=== PATIENT | female | born 1980 | race Caucasian/White ===

== ENCOUNTER 2020-06-16 15:56 | Emergency (ER) | payer SELFPAY ==
[~2020-06-16] VITALS: Ht 165.1 cm; Wt 52.2 kg
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
[2020-06-16] MEDS ORDERED: TRAMADOL HCL 50 MG TABLET ONE (17:04)
[2020-06-16] MEDS: TRAMADOL HCL 50 MG TABLET PO ONE (17:13)
--- NOTE | 2020-06-16 17:41 | NUR ---
Patient ambulatory with steady gait. No distress noted. Patient discharged to home in stable condition. Written and verbal after care instructions given. Patient verbalizes understanding of instruction.
[2020-06-16 17:42] VITALS: BP 111/33
== END 2020-06-16 17:42 | disposition home or self-care (01) ==
LOC: ER 16:05
DX: M54.5 Low back pain (principal); Z85.3 Personal history of malignant neoplasm of breast; Z98.890 Other specified postprocedural states; Z88.8 Allergy status to other drugs, medicaments and biological substances; Z88.9 Allergy status to unspecified drugs, medicaments and biological substances; V49.49XA Driver injured in collision with other motor vehicles in traffic accident, initial encounter; Y93.89 Activity, other specified; Y92.488 Other paved roadways as the place of occurrence of the external cause; Y99.8 Other external cause status
CPT/HCPCS: 72110-TC